=== PATIENT | female | born 1940 | race American Indian/Alaskan Native ===

== ENCOUNTER 2016-06-13 06:15 | Day surgery (SDC) | payer MEDICARE, MEDICAID ==
[2016-06-13] MEDS ORDERED: ECOTRIN PO ONE (06:48)
[2016-06-13] MEDS ORDERED: NACL 0.9% 500 ML 500 ML IV SCH (07:00)
[2016-06-13] MEDS ORDERED: HEPARIN 10,000 UNITS/10 ML ONE (07:38)
[2016-06-13] MEDS ORDERED: CALAN ONE (07:38)
[2016-06-13] MEDS ORDERED: NITROGLYCERIN SYRINGE 3 ML ONE (07:38)
[2016-06-13] MEDS ORDERED: HEPARIN/NS 5000 UNIT/500ML(CATH LAB) 1,000 ML IR ONE (07:38)
[2016-06-13] MEDS ORDERED: XYLOCAINE 2% INFILTRATI ONE (07:38)
[2016-06-13] MEDS ORDERED: VERSED ONE (07:43)
[2016-06-13] MEDS ORDERED: SUBLIMAZE ONE (07:44)
[2016-06-13 08:04] LABS: Basophils % (Auto) 0.4 % (0.0-1.8); Eosinophils % (Auto) 1.9 % (0.0-4.3); Hematocrit 35.5 % (30.3-42.9); Hemoglobin 11.7 gm/dl (10.1-14.3); Mean Corpuscular HGB Conc 33 % (30-34); Mean Corpuscular Hemoglobin 32 pg (28-32); Mean Corpuscular Volume 96 fl (79-97); Platelet Count 254 K/mm3 (140-440); Red Blood Count 3.71 M/mm3 (3.65-5.03); Red Cell Distribution Width 13.4 % (13.2-15.2); White Blood Count 5.1 K/mm3 (4.5-11.0)
[2016-06-13 08:14] LABS: INR 1.12 (0.87-1.13)
[2016-06-13 08:20] LABS: Anion Gap 15 mmol/L; Blood Urea Nitrogen 21 mg/dL (7-17); Calcium 8.5 mg/dL (8.4-10.2); Carbon Dioxide 24 mmol/L (22-30); Glucose 75 mg/dL (65-100); Potassium 3.6 mmol/L (3.6-5.0); Sodium 140 mmol/L (137-145)
--- NOTE | 2016-06-13 10:14 | Discharge Summary ---
Short Stay Discharge Plan Activity: other (POST CARDIAC CATH INSTRUCTIONS) Diet: low fat, low cholesterol, low salt Follow up with: ALLYSSA ENRIQUEZ MD [Primary Care Provider] - 7 Days ALBERTINA ANDERSON MD [Staff Physician] - 7 Days
--- NOTE | 2016-06-13 14:21 | Cardiac Catherization Report ---
HISTORY: The patient is a 75-year-old female with a history of chest pain and she underwent a stress test that was abnormal, so coronary angiography was recommended. PROCEDURE: Left heart catheterization, ventriculography, and coronary angiography via the right radial artery using 5-[place] Kate catheters and a pigtail catheter. COMPLICATIONS: None. SEDATION: Intravenous Versed and fentanyl. TISSUE SAMPLES: None. ESTIMATED BLOOD LOSS: 10-20 mL. PREPROCEDURE DIAGNOSIS: Angina. POSTPROCEDURE DIAGNOSES: Minimal coronary artery disease, mild left ventricular dysfunction due to inferior wall hypokinesia. Overall, ejection fraction is preserved at 50%. HEMODYNAMICS: Central aortic pressure 183/79. Left ventricular pressure 186/16. There was no gradient across the aortic valve. ANGIOGRAPHIC RESULTS: 1. Left ventricle: The ventriculogram reveals a normal sized left ventricle with left ventricular hypertrophy. The inferior wall, the entire inferior wall is hypokinetic to a mild degree. On estimation, the ejection fraction is 50%. 2. Right coronary artery: This is a dominant vessel and there are mild intimal irregularities, vessel is a large in caliber. 3. Left coronary artery: Large in caliber with a 20% stenosis in the midportion of the LAD. FINAL IMPRESSION: 1. Chest pain and abnormal stress test: There are only mild atherosclerotic changes in the coronary arteries. 2. Left ventricular hypertrophy. 3. Minimal dilatation of the aortic root noted on the ventriculogram. 4. Inferior wall hypokinesia with an ejection fraction of approximately 50%. The etiology of this large hypokinetic area is unclear. PLAN: CAD risk factor modification, blood pressure control, office followup within 7 days. JOB# [id number] GERMÁN/TARA
[2016-06-13 14:36] VITALS: BP 154/76
== END 2016-06-13 13:45 | disposition home or self-care (01) ==
LOC: OPU 06:15
PROVIDERS: ATTEND Internal Medicine
DX: I25.10 Atherosclerotic heart disease of native coronary artery without angina pectoris (principal); G30.9 Alzheimer's disease, unspecified; F02.80 Dementia in other diseases classified elsewhere, unspecified severity, without behavioral disturbance, psychotic disturbance, mood disturbance, and anxiety; M15.9 Polyosteoarthritis, unspecified; E11.9 Type 2 diabetes mellitus without complications; E78.5 Hyperlipidemia, unspecified; I10 Essential (primary) hypertension; Z90.710 Acquired absence of both cervix and uterus; Z98.890 Other specified postprocedural states; Z87.891 Personal history of nicotine dependence
CPT/HCPCS: 36415; 80048; 85025; 85610; 85730; 93005; 93010; 93458; C1894; J1644; J2250; J3010; J7040; Q9967